=== PATIENT | female | born 1985 | race Caucasian/White ===

== ENCOUNTER 2017-06-13 16:45 | Emergency (ER) | payer OTHER ==
[~2017-06-13] VITALS: Ht 165.1 cm; Wt 115.7 kg
[2017-06-13 21:08] VITALS: BP 131/88
== END 2017-06-13 21:08 | disposition home or self-care (01) ==
LOC: ED 16:45
DX: N64.4 Mastodynia (principal); K21.9 Gastro-esophageal reflux disease without esophagitis; R03.0 Elevated blood-pressure reading, without diagnosis of hypertension

== ENCOUNTER 2017-11-17 07:44 | Emergency (ER) | payer OTHER ==
[~2017-11-17] VITALS: Ht 162.6 cm; Wt 119.7 kg
[2017-11-17 08:33] VITALS: BP 126/74
== END 2017-11-17 08:33 | disposition home or self-care (01) ==
LOC: ED 07:44
DX: N39.0 Urinary tract infection, site not specified (principal); E66.9 Obesity, unspecified; Z68.42 Body mass index [BMI] 45.0-49.9, adult

== ENCOUNTER 2018-09-01 12:27 | Emergency (ER) | payer OTHER ==
[~2018-09-01] VITALS: Ht 162.6 cm; Wt 117.5 kg
[2018-09-01 12:36] VITALS: Ht 162.6 cm; Wt 117.5 kg
[2018-09-01 15:22] VITALS: BP 149/91
== END 2018-09-01 15:22 | disposition home or self-care (01) ==
LOC: ED 12:27
DX: S46.002A Unspecified injury of muscle(s) and tendon(s) of the rotator cuff of left shoulder, initial encounter (principal); W22.8XXA Striking against or struck by other objects, initial encounter; Y93.89 Activity, other specified; Y92.89 Other specified places as the place of occurrence of the external cause; Y99.8 Other external cause status